=== PATIENT | male | born 1965 | race Caucasian/White ===

== ENCOUNTER → 2017-08-16 | Outpatient (CLI) | payer OTHER, BC ==
--- NOTE | 2017-08-16 21:48 | DIAGNOSTIC IMAGING REPORT ---
MRI OF THE BRAIN COMBO INTERNAL AUDITORY CANAL PROTOCOL CLINICAL HISTORY: Left-sided hearing loss. Tinnitus. 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 COMPARISON STUDY: No priors. TECHNIQUE: MRI of the brain was performed utilizing various T1 and T2-weighted sequences in the axial, sagittal, and coronal planes. Contrast-enhanced sequences were acquired following the administration of 14 cc of Gadavist. Additional high-resolution imaging was performed through the skull base both pre and post contrast to assess the internal auditory canals. The examination is modestly degraded by motion artifact. FINDINGS: Brain parenchyma: The brain parenchyma is normal in appearance. There is no hemorrhage or mass effect. There is no restricted diffusion to suggest acute ischemia. No enhancing mass lesion is identified on the postcontrast images. Schumacher-white matter differentiation is preserved. No extra-axial fluid collection is seen. The cerebellar tonsils are normal in configuration. Ventricles, sulci, and cisterns: Normal in configuration. Internal auditory canals: No enhancing mass lesion is identified in the cerebellopontine angle bilaterally. No mass lesion or abnormal enhancement is identified along the course of the internal auditory canals. The middle ear structures are normal as visualized. No abnormal enhancement is suggested along the course of the external auditory canals. Pituitary and sella: Unremarkable. Intracranial vasculature: Normal flow voids are maintained at the skull base. Orbits: The bony orbits are grossly intact. Orbital contents are normal in appearance. Sinuses and mastoids: Mild mucosal thickening is seen within the maxillary antra and ethmoid sinuses. The remaining paranasal sinuses and the mastoid air cells are clear. Calvarium: Unremarkable. Cervical cord: Partially visualized cervical spinal cord is normal in morphology and signal intensity. IMPRESSION: 1. No acute intracranial abnormality. 2. Unremarkable MRI assessment of the internal auditory canals. 3. No enhancing lesion is suggested in the region of the left external auditory canal/tympanic membrane. Electronically signed by: Wilton Dee M.D. 08/16/2017 9:47 PM Dictated Date/Time: 08/16/2017 9:41 PM
== END | disposition home or self-care (01) ==
LOC: C.MRI 18:40
PROVIDERS: ATTEND Otolaryngology
DX: H90.5 Unspecified sensorineural hearing loss (principal)

== ENCOUNTER 2018-05-16 06:04 | Observation (INO) ==
[2018-05-16] MEDS ORDERED: SODIUM CHLORIDE 0.9% 500 ML IV SCH (06:30)
[2018-05-16] MEDS ORDERED: LIDOCAINE HCL 4% w/ Afrin 4 ML VIAL STA (06:31)
[2018-05-16] MEDS ORDERED: WATER, STERILE 50 ML, TRANEXAMIC ACID ORAL RINSE 5,000 MG, BARCODE IDENTIFIER 1 EA MT ONE (06:32)
[2018-05-16 06:45] LABS: Basophils # (auto) 0.02 K/uL (0-0.2); Basophils % (auto) 0.2 %; Eosinophils # (auto) 0.41 K/uL (0-0.5); Eosinophils % (auto) 4.3 %; Hemoglobin 14.7 g/dL (14.0-18.0); Immature Granulocytes # (auto) 0.02 K/uL (0.00-0.02); Immature Granulocytes % (auto) 0.2 %; Lymphocytes # (auto) 4.44 K/uL (1.2-3.4); Lymphocytes % (auto) 46.4 %; Mean Corpuscular Hgb Conc 32.7 g/dL (32-36); Mean Corpuscular Volume 95.1 fL (80-100); Mean Platelet Volume 11.8 fL (7.4-10.4); Monocytes # (auto) 0.49 K/uL (0.11-0.59); Monocytes % (auto) 5.1 %; Neutrophils # (auto) 4.19 K/uL (1.4-6.5); Neutrophils % (auto) 43.8 %; Platelet Count 290 K/uL (130-400); RDW Coefficient of Variation 14.5 % (11.5-14.5); RDW Standard Deviation 50.7 fL (36.4-46.3); Red Blood Count 4.73 M/uL (4.7-6.1); White Blood Count 9.57 K/uL (4.8-10.8)
[2018-05-16] MEDS ORDERED: TRANEXAMIC ACID 1,000 MG in 0.9 % SODIUM CHLORIDE 100 ML IV SCH (06:45)
[2018-05-16 06:52] LABS: Albumin Level 3.1 gm/dl (3.4-5.0); BUN Creatinine Ratio 9.9 (10-20); Calcium 9.1 mg/dl (8.5-10.1); Creatinine Clr Calc Pharmacy 102.8 ml/min; Est GFR (African American) 83.5; Potassium 3.9 mmol/L (3.5-5.1)
[2018-05-16 06:54] LABS: Albumin Globulin Ratio 0.6 (0.9-2); Bilirubin,Total 0.5 mg/dl (0.2-1); Globulin 5.2 gm/dl (2.5-4.0); Total Protein 8.3 gm/dl (6.4-8.2)
[2018-05-16 07:12] LABS: INR 1.1 (0.9-1.1); Prothrombin Time 11.3 Seconds (9.0-12.0)
--- NOTE | 2018-05-16 07:18 | History & Physical Report ---
Date of Service May 16, 2018 Assessment & Plan (1) Tonsillar bleed: observe, hydrate with IV fluids, to OR if any bleeding History of Present Illness Chief Complaint: tonsillar bleed Primary Care Provider: Clemente Hansen Acute tonsillar bleed, S/P tonsillectomy/UPPP 10 days ago, has not been able to eat or drink, acute bleed 5 AM, now stopped Allergies Allergy/AdvReac Type Severity Reaction Status Date / Time No Known Allergies Allergy Verified 05/16/18 06:20 Home Medications Home Medications Medication Instructions Recorded Confirmed Type lisinopril 20 mg PO QAM 04/13/18 05/16/18 History hydrocodone-acetaminophen 15 ml PO Q4H PRN #400 ml 05/06/18 05/16/18 Rx tramadol 50 mg PO Q6H PRN #30 tab 05/06/18 05/16/18 Rx Past Med/Surg History Medical History Obstructive sleep apnea Encounter for pre-operative examination Hypertension (Chronic) Dyspnea (Acute) Lightheadedness (Acute) Chronic low back pain Hypertension Morbid obesity Sleep apnea CPAP Surgical History History of colonoscopy History of hand surgery MIDDLE FINGER/L HAND History of laparoscopic cholecystectomy Family History Other Family history non-contributory Social History marital status: Current Living Situation: Family current occupational status: employed Feels Safe at Home: Yes Smoking Status: Never smoker Hx Alcohol Use: No Hx Substance Use: No Beliefs That Will Affect Care: None Preferred Language: [place] Visual Impairment: No Limitations Physical Exam 2 Vital Signs (Past 24 Hours): Last Vital Signs Temp 36.9 C 05/16/18 06:08 Pulse 73 05/16/18 06:08 Resp 18 05/16/18 06:08 BP 142/88 H 05/16/18 06:08 Pulse Ox 96 05/16/18 06:08 Constitutional: + ill appearing, + morbidly obese and cooperative Eyes: PERRL, conjunctivae normal, anicteric sclerae ENMT: Mouth: + oropharynx abnormality (right tonsillar fossa clot suctioned out, no further bleeding) Neck: trachea midline, no thyromegaly Respiratory: normal respiratory effort, lungs clear to auscultation Cardiovascular: RRR, no murmur, no edema
[2018-05-16] MEDS ORDERED: ACETAMINOPHEN/HYDROCODONE ELIX 15 ML/CUP UDP PO PRN ×2 (07:19)
[2018-05-16] MEDS ORDERED: SODIUM CHLORIDE 0.65% NA SOLN 45 ML (OCEAN) PRN (07:19)
[2018-05-16] MEDS ORDERED: ACETAMINOPHEN SOL 650 MG/20.3 ML UDC PO PRN (07:19)
[2018-05-16] MEDS ORDERED: LORazepam 1 MG/2 ML VIAL IV PRN (07:19)
[2018-05-16] MEDS ORDERED: ONDANSETRON INJ 2 MG/ML 2 ML VIAL IV PRN ×2 (07:19→16:36)
[2018-05-16] MEDS ORDERED: OXYMETAZOLINE 0.05% 30 ML BTL PRN (07:19)
[2018-05-16] MEDS ORDERED: SODIUM CHLORIDE 0.9% 500 ML BAG IV ONE (10:09)
[2018-05-16] MEDS: D5W AND 1/2NSS + 20MEQ KCL 20 MEQ/1,000 ML BAG IV SCH ×2 (10:21→20:57)
[2018-05-16] MEDS: DEXAMETHASONE SOD PHOSPHATE 6 MG in SYRINGE 0 ML IV SCH ×2 (11:13→18:59)
[2018-05-16] MEDS ORDERED: SUCCINYLCHOLINE CHLORIDE 20 MG/ML 10 ML VIAL ONE (16:22)
[2018-05-16] MEDS ORDERED: LIDOCAINE HCL 2% 2 ML VIAL/AMP(20MG/ML) INFIL ONE (16:22)
[2018-05-16] MEDS ORDERED: PROPOFOL IV EMULSION 10 MG/ML 20 ML VIAL IV ONE ×2 (16:22→17:18)
[2018-05-16] MEDS ORDERED: fentaNYL citrate 100 MCG/2 ML VIAL ONE (16:22)
[2018-05-16] MEDS ORDERED: BUPIVACAINE/EPINEPHRINE 0.5% MPF 1:200,000 30 ML VIAL ONE (16:24)
[2018-05-16] MEDS ORDERED: fentaNYL citrate 100 MCG/2 ML VIAL IV PRN (16:36)
[2018-05-16] MEDS ORDERED: ePHEDrine sulfate 50 MG/ML AMP IV PRN (16:36)
[2018-05-16] MEDS ORDERED: ATROPINE SULFATE 0.1 MG/ML 10ML SYR IV PRN (16:36)
--- NOTE | 2018-05-16 16:44 | Anesthesiology Consultation ---
Date of Service May 16, 2018 Assessment & Plan Chart Review Chart Review: Acceptable Risk for Surgery Consults Requested none ASA [id number] Proposed Anesthesia Anesthesia Type: General Additional Notes GETA RSI with cricoid. No active bleeding. pt counseled on risks/benefits including aspiration risk. NPO Date Last Intake of Fluids: 05/15/18 Time Last Intake of Fluids: 20:00 Date Last Intake of Solids: 05/15/18 Time Last Intake of Solids: 20:00 History Surgery Operation Date: 05/16/18 10:10 Proposed Procedures p Tonsillar Bleed, S/P T&A - Barbara Champion MD Height/Weight Height: 5 ft 6 in Weight: 148.2 kg Allergies Allergy/AdvReac Type Severity Reaction Status Date / Time No Known Allergies Allergy Verified 05/16/18 06:20 Medications Home Medications Medication Instructions Recorded Confirmed Last Taken lisinopril 20 mg PO QAM 04/13/18 05/16/18 Unknown hydrocodone-acetaminophen 15 ml PO Q4H PRN #400 ml 05/06/18 05/16/18 Unknown tramadol 50 mg PO Q6H PRN #30 tab 05/06/18 05/16/18 Unknown Active Medications Generic Name Dose Route Start Last Admin Trade Name Freq PRN Reason Stop Dose Admin Potassium Chloride/Dextrose/Sod Cl 20 meq in 1,000 mls @ 100 mls/hr 05/16/18 10:00 05/16/18 10:21 D5w And 1/2nss + 20meq Kcl IV 06/15/18 09:59 100 mls/hr .Q10H ALEKSANDAR Administration Dexamethasone Sodium Phosphate 1.5 mls @ 1 mls/min 05/16/18 10:00 05/16/18 11 :13 6 mg/ Syringe IV 06/15/18 09:59 1 mls/min Q6H ALEKSANDAR Administration Past Medical History Medical History Obstructive sleep apnea Encounter for pre-operative examination Hypertension (Chronic) Dyspnea (Acute) Lightheadedness (Acute) Chronic low back pain Hypertension Morbid obesity Sleep apnea CPAP Past Family History Family History Other Family history non-contributory Past Surgical History Surgical History History of tonsillectomy and adenoidectomy History of colonoscopy History of hand surgery MIDDLE FINGER/L HAND History of laparoscopic cholecystectomy Past Anesthesia History No Hx of Anesthesia Complications History of PONV No Motion Sickness Screening History of Motion Sickness: No Social History Smoking Status: Never smoker Hx Alcohol Use: No Hx Substance Use: No substance use type: does not use Exercise / Class Metabolic Activity II 4-5 Yardwork/Stairs/Walk up hill Physical Exam Vital Signs Last Vital Signs Temp 36.5 C 05/16/18 15:23 Pulse 67 05/16/18 15:23 Resp 19 05/16/18 15:23 BP 117/76 05/16/18 15:23 Pulse Ox 92 05/16/18 15:23 Constitutional + morbidly obese ENMT Mouth: no TMJ abnormality Thyromental Distance: > or= 3.5 Finger Breadths Mallampati Class: II intact dentition. no active bleeding noted currently. Pt not dyspnic on exam Neck normal visual inspection and trachea midline; neck extension not limited Respiratory normal respiratory effort Auscultation: lungs clear to auscultation bilaterally Cardiovascular Rate/Rhythm: regular rate and regular rhythm Heart Sounds: no murmur Musculoskeletal Spine: normal cervical ROM Extremities: full ROM of extremities Neurologic moves all extremities Psychiatric Orientation: alert and oriented x 3 Testing Electrocardiogram Date: 05/16/18 Findings: + NSR @ (65) Laboratory Results 05/16/18 06:15 05/16/18 06:15 Blood Type O Positive 05/16/18 06:47 Antibody Screen NEGATIVE 05/16/18 06:47 PT 11.3 Seconds (9.0-12.0) 05/16/18 06:15 INR 1.1 (0.9-1.1) 05/16/18 06:15 APTT 25.0 Seconds (21.0-31.0) 05/16/18 06:15
--- NOTE | 2018-05-16 17:17 | Operative Report ---
Post Operative Report Pre & Post Diagnosis Operation Date: 05/16/18 10:10 Tonsillar bleed <No data on this case meets the specified criteria> Procedure Operation Date: 05/16/18 10:10 Hemostasis <No data on this case meets the specified criteria> Surgeon Barbara Champion MD Airline Transport Pilot None Estimated Blood Loss 20 Findings Consistent with Post-Op Diagnosis Specimens None Anesthesia Type General Complications none Disposition Accompanied Patient To Recovery: Yes Disposition: Recovery Room Indications 52-year-old with sudden onset of bleeding this a.m. 10 days after tonsillectomy Description of Procedure He was brought to the operating room and placed in the supine position. General endotracheal anesthesia was induced using the rapid sequence technique by Dr. Back. The mouthgag was placed and the pharynx was irrigated clean with saline removing the clot from the right tonsillar fossa and then identified 2 sites of bleeding one on the right side of the uvula and one at the right superior pole of the tonsil with the latter one being in the arterial bleed which was brisk, which were both cauterized with the suction cautery with good control of the bleeding. The pharynx was irrigated clean with saline and the stomach was evacuated using a OG tube. The patient tolerated the procedure well and was taken recovery area in satisfactory condition. I attest to the content of the Intraoperative Record and any orders documented therein. Any exceptions are noted below.
[2018-05-16] MEDS ORDERED: ESMOLOL HCL INJ 10 MG/ML 10ML VIAL IV ONE (17:18)
--- NOTE | 2018-05-16 18:14 | Anesthesiology Progress Note ---
Date of Service May 16, 2018 Anesthesia Post Procedure Vital Signs Vital Signs: Temp Pulse Pulse Pulse Resp BP BP 05/16/18 18:00 36.7 C 81 17 118/72 05/16/18 17:50 84 18 111/68 05/16/18 17:40 83 16 107/66 05/16/18 17:30 85 15 99/65 L 05/16/18 17:20 93 H 20 105/62 05/16/18 17:14 36.5 C 94 H 20 115/67 05/16/18 16:30 36.7 C 85 18 148/87 H 05/16/18 15:23 36.5 C 67 19 05/16/18 09:00 36.9 C 69 18 05/16/18 08:55 70 20 118/76 05/16/18 08:00 69 20 05/16/18 06:08 36.9 C 73 18 142/88 H BP Pulse Ox 05/16/18 18:00 93 05/16/18 17:50 93 05/16/18 17:40 92 05/16/18 17:30 93 05/16/18 17:20 93 05/16/18 17:14 93 05/16/18 16:30 96 05/16/18 15:23 117/76 92 05/16/18 09:00 133/77 96 05/16/18 08:55 95 05/16/18 08:00 133/78 98 05/16/18 06:08 96 Notes Mental Status: alert / awake / arousable Patient Amnestic to Procedure: Yes Nausea / Vomiting: adequately controlled Pain: adequately controlled Airway Patency, RR, SpO2: stable & adequate BP & HR: stable & adequate Hydration State: stable & adequate Anesthetic Complications: no major complications apparent
[2018-05-17] MEDS: DEXAMETHASONE SOD PHOSPHATE 6 MG in SYRINGE 0 ML IV SCH ×2 (01:37→06:33)
[2018-05-17] MEDS: D5W AND 1/2NSS + 20MEQ KCL 20 MEQ/1,000 ML BAG IV SCH (06:33)
--- NOTE | 2018-05-17 07:59 | Discharge Summary ---
Date of Service May 17, 2018 Admission HPI Per Admitting Provider Acute tonsillar bleed, S/P tonsillectomy/UPPP 10 days ago, has not been able to eat or drink, acute bleed 5 AM, now stopped Admission Exam (Per Admitting) Constitutional + ill appearing, + morbidly obese and cooperative Eyes PERRL, conjunctivae normal, anicteric sclerae ENMT Mouth: + oropharynx abnormality (right tonsillar fossa clot suctioned out, no further bleeding) Neck trachea midline, no thyromegaly Respiratory normal respiratory effort, lungs clear to auscultation Cardiovascular RRR, no murmur, no edema Discharge Data Consultations 05/16/18 07:10 Consult Otolaryngology (Head and Neck) Stat 05/16/18 07:25 ED Decision to Admit Stat Procedures Performed Operation Date: 05/16/18 10:10 Actual Procedures p Cauterization of tonsillar bleed(Not Applicable) - Barbara Champion MD Hospital Course (1) Tonsillar bleed: observe, hydrate with IV fluids, to OR if any bleeding He bled and was taken to OR for cautery, right superior pole
--- NOTE | 2018-05-17 08:05 | Anesthesiology Progress Note ---
Date of Service May 17, 2018 Anesthesia Post Procedure Vital Signs Vital Signs: Temp Pulse Pulse Pulse Pulse Pulse Resp 05/17/18 03:16 37.2 C 65 16 05/17/18 03:07 37.2 C 65 16 05/16/18 23:41 37.0 C 79 16 05/16/18 21:15 36.8 C 69 2 L 05/16/18 20:16 36.2 C L 75 17 05/16/18 19:26 37.0 C 75 18 05/16/18 18:57 36.9 C 74 18 05/16/18 18:15 36.9 C 81 18 05/16/18 18:00 36.7 C 81 17 05/16/18 17:50 84 18 05/16/18 17:40 83 16 05/16/18 17:30 85 15 05/16/18 17:20 93 H 20 05/16/18 17:14 36.5 C 94 H 20 05/16/18 16:30 36.7 C 85 18 05/16/18 15:23 36.5 C 67 19 05/16/18 09:00 36.9 C 69 18 05/16/18 08:55 70 20 BP BP BP Pulse Ox 05/17/18 03:16 108/67 90 05/17/18 03:07 90 05/16/18 23:41 106/70 90 05/16/18 21:15 124/78 94 05/16/18 20:16 122/76 95 05/16/18 19:26 118/75 95 05/16/18 18:57 106/70 94 05/16/18 18:15 102/64 93 05/16/18 18:00 118/72 93 05/16/18 17:50 111/68 93 05/16/18 17:40 107/66 92 05/16/18 17:30 99/65 L 93 05/16/18 17:20 105/62 93 05/16/18 17:14 115/67 93 05/16/18 16:30 148/87 H 96 05/16/18 15:23 117/76 92 05/16/18 09:00 133/77 96 05/16/18 08:55 118/76 95 Notes Mental Status: alert / awake / arousable and participated in evaluation Patient Amnestic to Procedure: Yes Nausea / Vomiting: adequately controlled Pain: adequately controlled Airway Patency, RR, SpO2: stable & adequate BP & HR: stable & adequate Hydration State: stable & adequate Anesthetic Complications: no major complications apparent
[2018-05-17] MEDS ORDERED: LISINOPRIL 20 MG TAB PO SCH (09:00)
--- NOTE | 2018-05-17 14:45 | Emergency Department Note ---
Entered by Rita Her acting as a scribe for Khoi Aleman MD History of Present Illness General Chief complaint: Bleeding Time Seen by Provider: 05/16/18 06:24 Source: patient History of Present Illness Onset (ago): day(s) (this morning) Location: mouth Pain Consistency: + other (sudden) Maximum Pain Intensity: 2 Quality: + other (bleeding) Associated symptoms: + nausea/vomiting (vomiting) The patient is a 52 year old male who presents to the Emergency Room with complaints of sudden bleeding starting this morning. The patient states that he had his adenoids and tonsils removed on May 06. He reports that this morning he was wearing his Bi-PAP mask when he woke up to a large amount of bleeding in the back of his throat. He states that he immediately called Dr. Champion s cell phone number and came here to the ED. The patient states that upon arriving to the ED he vomited a small amount of blood in it. Home Medications Home Medications Medication Instructions Recorded Confirmed Type lisinopril 20 mg PO QAM 04/13/18 05/16/18 History hydrocodone-acetaminophen 15 ml PO Q4H PRN #400 ml 05/06/18 05/16/18 Rx tramadol 50 mg PO Q6H PRN #30 tab 05/06/18 05/16/18 Rx Allergies Allergy/AdvReac Type Severity Reaction Status Date / Time No Known Allergies Allergy Verified 05/16/18 06:20 Past Med/Surg History Medical History Obstructive sleep apnea Encounter for pre-operative examination Hypertension (Chronic) Dyspnea (Acute) Lightheadedness (Acute) Chronic low back pain Hypertension Morbid obesity Sleep apnea CPAP Surgical History History of tonsillectomy and adenoidectomy History of colonoscopy History of hand surgery MIDDLE FINGER/L HAND History of laparoscopic cholecystectomy Family History Other Family history non-contributory Social History marital status: Current Living Situation: Spouse and Family current occupational status: employed Other Information That Helps Us Care for You: No Feels Safe at Home: Yes Safety Concerns: Feels Safe At This Time Smoking Status: Never smoker Hx Alcohol Use: No Hx Substance Use: No Beliefs That Will Affect Care: None Communication Ability: Effective Review of Systems See HPI for pertinent positives & negatives. and A total of 10 systems reviewed and were otherwise negative Physical Exam Vital Signs Vital Signs - 24 hr 05/16/18 15:10 05/16/18 15:23 05/16/18 16:30 Temperature 36.5 C 36.7 C Temperature Source Oral Temporal Artery Scan Pulse Rate [Apical] Pulse Rate [Finger] 67 85 Pulse Rate [Left Finger] Pulse Rate [Right Finger] Pulse Rhythm [Apical] Pulse Rhythm [Finger] Regular Pulse Rhythm [Left Finger] Pulse Strength [Left Finger] Respiratory Rate 19 18 Respiratory Effort / Characteristics Non-Labored Spontaneous Normal for Patient Non-Labored Spontaneous Respiratory Depth Normal Normal Normal Respiratory Pattern Regular Regular Blood Pressure [Left Arm] 148/87 H Blood Pressure [Right Arm] 117/76 Blood Pressure Mean [Left Arm] 107 Blood Pressure Mean [Right Arm] 89 Blood Pressure Position [Left Arm] Semi-fowlers Blood Pressure Position [Right Arm] Lying Pulse Oximetry 92 96 Oxygen Delivery Method Room Air Room Air Oxygen Flow Rate 05/16/18 17:14 05/16/18 17:20 05/16/18 17:30 Temperature 36.5 C Temperature Source Temporal Artery Scan Pulse Rate [Apical] 94 H 93 H 85 Pulse Rate [Finger] Pulse Rate [Left Finger] Pulse Rate [Right Finger] Pulse Rhythm [Apical] Regular Regular Regular Pulse Rhythm [Finger] Pulse Rhythm [Left Finger] Pulse Strength [Left Finger] Respiratory Rate 20 20 15 Respiratory Effort / Characteristics Non-Labored Spontaneous Non-Labored Spontaneous Non-Labored Spontaneous Respiratory Depth Normal Normal Normal Respiratory Pattern Regular Regular Regular Blood Pressure [Left Arm] 115/67 105/62 99/65 L Blood Pressure [Right Arm] Blood Pressure Mean [Left Arm] 83 76 76 Blood Pressure Mean [Right Arm] Blood Pressure Position [Left Arm] Semi-fowlers Semi-fowlers Semi-fowlers Blood Pressure Position [Right Arm] Pulse Oximetry 93 93 93 Oxygen Delivery Method Oxymask Oxymask Oxymask Oxygen Flow Rate 10 10 10 05/16/18 17:40 05/16/18 17:50 05/16/18 18:00 Temperature 36.7 C Temperature Source Temporal Artery Scan Pulse Rate [Apical] 83 84 81 Pulse Rate [Finger] Pulse Rate [Left Finger] Pulse Rate [Right Finger] Pulse Rhythm [Apical] Regular Regular Regular Pulse Rhythm [Finger] Pulse Rhythm [Left Finger] Pulse Strength [Left Finger] Respiratory Rate 16 18 17 Respiratory Effort / Characteristics Non-Labored Spontaneous Non-Labored Spontaneous Non-Labored Spontaneous Respiratory Depth Normal Normal Normal Respiratory Pattern Regular Regular Regular Blood Pressure [Left Arm] 107/66 111/68 118/72 Blood Pressure [Right Arm] Blood Pressure Mean [Left Arm] 79 82 87 Blood Pressure Mean [Right Arm] Blood Pressure Position [Left Arm] Semi-fowlers Semi-fowlers Semi-fowlers Blood Pressure Position [Right Arm] Pulse Oximetry 92 93 93 Oxygen Delivery Method Room Air Room Air Room Air Oxygen Flow Rate 05/16/18 18:15 05/16/18 18:57 05/16/18 19:26 Temperature 36.9 C 36.9 C 37.0 C Temperature Source Oral Oral Oral Pulse Rate [Apical] Pulse Rate [Finger] Pulse Rate [Left Finger] 81 74 75 Pulse Rate [Right Finger] Pulse Rhythm [Apical] Pulse Rhythm [Finger] Pulse Rhythm [Left Finger] Regular Pulse Strength [Left Finger] Normal Respiratory Rate 18 18 18 Respiratory Effort / Characteristics Non-Labored Spontaneous Normal for Patient Respiratory Depth Normal Normal Normal Respiratory Pattern Regular Blood Pressure [Left Arm] 102/64 106/70 118/75 Blood Pressure [Right Arm] Blood Pressure Mean [Left Arm] 76 82 89 Blood Pressure Mean [Right Arm] Blood Pressure Position [Left Arm] Lying Lying Lying Blood Pressure Position [Right Arm] Pulse Oximetry 93 94 95 Oxygen Delivery Method Nasal Cannula Nasal Cannula Nasal Cannula Oxygen Flow Rate 2 2 2 05/16/18 20:16 05/16/18 21:15 05/16/18 23:41 Temperature 36.2 C L 36.8 C 37.0 C Temperature Source Oral Oral Oral Pulse Rate [Apical] Pulse Rate [Finger] Pulse Rate [Left Finger] 75 69 Pulse Rate [Right Finger] 79 Pulse Rhythm [Apical] Pulse Rhythm [Finger] Pulse Rhythm [Left Finger] Regular Pulse Strength [Left Finger] Normal Respiratory Rate 17 2 L 16 Respiratory Effort / Characteristics Non-Labored Spontaneous Short of Breath Respiratory Depth Normal Normal Respiratory Pattern Regular Blood Pressure [Left Arm] 122/76 124/78 106/70 Blood Pressure [Right Arm] Blood Pressure Mean [Left Arm] 91 93 82 Blood Pressure Mean [Right Arm] Blood Pressure Position [Left Arm] Lying Lying Lying Blood Pressure Position [Right Arm] Pulse Oximetry 95 94 90 Oxygen Delivery Method Nasal Cannula Nasal Cannula Room Air Oxygen Flow Rate 2 05/17/18 00:05 05/17/18 03:07 05/17/18 03:16 Temperature 37.2 C 37.2 C Temperature Source Oral Oral Pulse Rate [Apical] Pulse Rate [Finger] Pulse Rate [Left Finger] 65 65 Pulse Rate [Right Finger] Pulse Rhythm [Apical] Pulse Rhythm [Finger] Pulse Rhythm [Left Finger] Pulse Strength [Left Finger] Respiratory Rate 16 16 Respiratory Effort / Characteristics Non-Labored Spontaneous Respiratory Depth Normal Respiratory Pattern Regular Blood Pressure [Left Arm] Blood Pressure [Right Arm] 108/67 Blood Pressure Mean [Left Arm] Blood Pressure Mean [Right Arm] 80 Blood Pressure Position [Left Arm] Blood Pressure Position [Right Arm] Lying Pulse Oximetry 90 90 Oxygen Delivery Method Room Air Room Air Room Air Oxygen Flow Rate 05/17/18 07:39 05/17/18 08:33 Temperature 36.9 C 36.9 C Temperature Source Oral Pulse Rate [Apical] 81 Pulse Rate [Finger] Pulse Rate [Left Finger] 65 Pulse Rate [Right Finger] 68 68 Pulse Rhythm [Apical] Pulse Rhythm [Finger] Pulse Rhythm [Left Finger] Pulse Strength [Left Finger] Respiratory Rate 16 16 Respiratory Effort / Characteristics Respiratory Depth Respiratory Pattern Blood Pressure [Left Arm] 112/74 112/74 Blood Pressure [Right Arm] 108/67 Blood Pressure Mean [Left Arm] 86 Blood Pressure Mean [Right Arm] Blood Pressure Position [Left Arm] Lying Blood Pressure Position [Right Arm] Pulse Oximetry 93 93 Oxygen Delivery Method Oxygen Flow Rate GENERAL: Awake, alert, well-appearing, in no distress HENT: Normocephalic, atraumatic. Oropharynx shows that eschars appear to be in place with a mild amount of blood in the oropharynx. EYES: Normal conjunctiva. Sclera non-icteric. NECK: Supple. No nuchal rigidity. FROM. No masses. RESPIRATORY: Clear to auscultation. No wheezes. No rales. Normal respiratory effort. CARDIAC: Normal rate. Normal rhythm. No murmurs. No rubs. Extremities warm and well perfused. Pulses equal. No JVD. GI: Soft, non-distended. No tenderness to palpation. No rebound or guarding. No masses. RECTAL: Deferred. MUSCULOSKELETAL: Atraumatic. Chest examination reveals no tenderness. The back is symmetrical on inspection without obvious abnormality. There is no CVA tenderness to palpation. No joint edema. LOWER EXTREMITIES: Calves are equal size bilaterally and non-tender. No edema. No discoloration. NEURO: Normal sensorium. No sensory or motor deficits noted. Course 0625: Past medical records reviewed. The patient was evaluated in room C4, and a complete history and physical examination were performed. 0633: I discussed the patient's case with Dr. Steffany ANDRADE. He states that he will come into to see the patient. 0702: I reevaluated the patient and he is doing well. Dr. Pereira is at bedside speaking with the patient. 0724: I spoke to Dr. Steffany ANDRADE at this time. He will evaluate the patient for further management. Consultations Consultation #1: I discussed the patient's case with Dr. Steffany ANDRADE. He states that he will come into to see the patient. Time: 06:33 Consultation #2: I spoke to Dr. Steffany ANDRADE at this time. He will evaluate the patient for further management. Time: 07:24 Administered Medications Discontinued Medications Bupivacaine HCl/Epinephrine Bitart (Sensorcaine/Epinephrine 0.5% Mpf 1:200,000) Confirm Administered Dose 30 ml .ROUTE .STIntelligentM-MED ONE Stop: 05/16/18 16:25 Last Admin: 05/16/18 17:23 Dose: Not Given Sterile Water 50 ml/Tranexamic Acid 5,000 mg/BARCODE IDENTIFIER 1 ea 0 ml MT ONE [facility] Stop: 05/16/18 06:33 Last Admin: 05/16/18 15:11 Dose: Not Given Sodium Chloride (Nss) 500 mls @ 999 mls/hr IV .Q31M [facility] Stop: 05/16/18 07:00 Last Admin: 05/16/18 15:10 Dose: Not Given Tranexamic Acid 1,000 mg/ (Sodium Chloride) 110 mls @ 660 mls/hr IV ONE [facility] Stop: 06/15/18 06:44 Last Admin: 05/16/18 15:11 Dose: Not Given Potassium Chloride/Dextrose/Sod Cl (D5w And 1/2nss + 20meq Kcl) 20 meq in 1, 000 mls @ 100 mls/hr IV .Q10H [facility] Stop: 06/15/18 09:59 Last Admin: 05/17/18 06:33 Dose: 100 mls/hr Infusion: 05/17/18 06:33 Dose: 100 mls/hr Admin: 05/16/18 20:57 Dose: 100 mls/hr Infusion: 05/16/18 20:57 Dose: 100 mls/hr Infusion: 05/16/18 18:15 Dose: 100 mls/hr Infusion: 05/16/18 16:00 Dose: 0 mls/hr Admin: 05/16/18 10:21 Dose: 100 mls/hr Dexamethasone Sodium Phosphate (6 mg/ Syringe) 1.5 mls @ 1 mls/min IV Q6H [facility] Stop: 06/15/18 09:59 Last Admin: 05/17/18 06:33 Dose: 1 mls/min Admin: 05/17/18 01:37 Dose: 1 mls/min Admin: 05/16/18 18:59 Dose: 1 mls/min Admin: 05/16/18 11:13 Dose: 1 mls/min Lidocaine HCl (Afrin W/Lidocaine 4%) 4 ml NA NOW STA Stop: 05/16/18 06:32 Last Admin: 05/16/18 09:20 Dose: Not Given Lisinopril (Zestril) 20 mg PO QAM [facility] Stop: 06/16/18 08:59 Last Admin: 05/17/18 08:43 Dose: 20 mg Medical Decision Making Medical Records Attestation: I reviewed the patient's medical records. Home Medications Current Medication List: was personally reviewed by me Laboratory Data Attestation: I reviewed the patient's lab results. Result diagrams: 05/16/18 06:15 05/16/18 06:15 Lab Results 05/16/18 05/16/18 05/16/18 Range/Units 06:15 06:15 06:15 WBC 9.57 (4.8-10.8) K/uL RBC 4.73 (4.7-6.1) M/uL Hgb 14.7 (14.0-18.0) g/dL Hct 45.0 (42-52) % MCV 95.1 (80-100) fL MCH 31.1 (25-34) pg MCHC 32.7 (32-36) g/dL RDW Std Deviation 50.7 H (36.4-46.3) fL RDW Coeff of Desirae 14.5 (11.5-14.5) % Plt Count 290 (130-400) K/uL MPV 11.8 H (7.4-10.4) fL Immature Gran % (Auto) 0.2 % Neut % (Auto) 43.8 % Lymph % (Auto) 46.4 % [place] % (Auto) 5.1 % Eos % (Auto) 4.3 % Baso % (Auto) 0.2 % Immature Gran # (Auto) 0.02 (0.00-0.02) K/uL Neut # (Auto) 4.19 (1.4-6.5) K/uL Lymph # (Auto) 4.44 H (1.2-3.4) K/uL [place] # (Auto) 0.49 (0.11-0.59) K/uL Eos # (Auto) 0.41 (0-0.5) K/uL Baso # (Auto) 0.02 (0-0.2) K/uL PT 11.3 (9.0-12.0) Seconds INR 1.1 (0.9-1.1) APTT 25.0 (21.0-31.0) Seconds PTT Ratio 1.0 Sodium 138 (136-145) mmol/L Potassium 3.9 (3.5-5.1) mmol/L Chloride 104 (98-107) mmol/L Carbon Dioxide 26 (21-32) mmol/L Anion Gap 8.0 (3-11) BUN 12 (7-18) mg/dl Creatinine 1.16 (0.6-1.4) mg/dl Est Cr Clr Drug Dosing 102.8 ml/min Est GFR ( Amer) 83.5 Est GFR (Non-Af Amer) 72.0 BUN/Creatinine Ratio 9.9 L (10-20) Glucose 129 H (70-99) mg/dl Calcium 9.1 (8.5-10.1) mg/dl Total Bilirubin 0.5 (0.2-1) mg/dl AST 119 H (15-37) U/L ALT 115 H (12-78) U/L Alkaline Phosphatase 83 (45-117) U/L Total Protein 8.3 H (6.4-8.2) gm/dl Albumin 3.1 L (3.4-5.0) gm/dl Globulin 5.2 H (2.5-4.0) gm/dl Albumin/Globulin Ratio 0.6 L (0.9-2) Blood Type Antibody Screen 05/16/18 Range/Units 06:47 WBC (4.8-10.8) K/uL RBC (4.7-6.1) M/uL Hgb (14.0-18.0) g/dL Hct (42-52) % MCV (80-100) fL MCH (25-34) pg MCHC (32-36) g/dL RDW Std Deviation (36.4-46.3) fL RDW Coeff of Desirae (11.5-14.5) % Plt Count (130-400) K/uL MPV (7.4-10.4) fL Immature Gran % (Auto) % Neut % (Auto) % Lymph % (Auto) % [place] % (Auto) % Eos % (Auto) % Baso % (Auto) % Immature Gran # (Auto) (0.00-0.02) K/uL Neut # (Auto) (1.4-6.5) K/uL Lymph # (Auto) (1.2-3.4) K/uL [place] # (Auto) (0.11-0.59) K/uL Eos # (Auto) (0-0.5) K/uL Baso # (Auto) (0-0.2) K/uL PT (9.0-12.0) Seconds INR (0.9-1.1) APTT (21.0-31.0) Seconds PTT Ratio Sodium (136-145) mmol/L Potassium (3.5-5.1) mmol/L Chloride (98-107) mmol/L Carbon Dioxide (21-32) mmol/L Anion Gap (3-11) BUN (7-18) mg/dl Creatinine (0.6-1.4) mg/dl Est Cr Clr Drug Dosing ml/min Est GFR ( Amer) Est GFR (Non-Af Amer) BUN/Creatinine Ratio (10-20) Glucose (70-99) mg/dl Calcium (8.5-10.1) mg/dl Total Bilirubin (0.2-1) mg/dl AST (15-37) U/L ALT (12-78) U/L Alkaline Phosphatase (45-117) U/L Total Protein (6.4-8.2) gm/dl Albumin (3.4-5.0) gm/dl Globulin (2.5-4.0) gm/dl Albumin/Globulin Ratio (0.9-2) Blood Type O Positive Antibody Screen NEGATIVE ECG Data Attestation: I personally reviewed and interpreted this ECG as follows: Indication: vomiting Rate (beats per minute): 65 Rhythm: normal sinus Findings: + other (normal EKG); no ST depression and no ST elevation Blood Pressure Blood Pressure Findings: Elevated blood pressure Blood Pressure Disposition: further management by hospitalist ZABRINA Olivia This is a 52-year-old male who presents emergency department after a post tonsillar bleed. Dr. Singh arrived in the emergency department to examine the patient. He will admit the patient for observation. Patient and family were in agreement with the treatment plan Impression & Plan Post-op bleeding Critical Care Time I have personally spent greater than 30 minutes of critical care time in the direct management of this patient. This includes bedside care, interpretation of diagnostic studies, and testing, discussion with consultants, patient, and family members, and other required patient management activities. This 30 minutes is in excess of all separately billable procedures. Critical Care Time: Yes Total Critical Care Time: 30 Discharge Plan Visit Data *Final* Discharge Date/Time: 05/16/18 08:55 Chief Complaint: Bleeding ED Provider: Khoi Aleman Discharge Problem: Post-op bleeding Patient Disposition: Admitted As Inpatient Discharge Instructions Interventions: ED Discharge Assessment Last Done: 05/16/18 08:55 The scribe's documentation has been prepared under my direction and personally reviewed by me in its entirety. I confirm that the note above accurately reflects all work, treatment, procedures, and medical decision making performed by me.
== END 2018-05-17 10:10 | disposition home or self-care (01) ==
LOC: ED 06:04 → 3W 06:04